=== PATIENT | male | born 1960 | race African-American/Black ===

== ENCOUNTER 2016-11-21 23:53 | Emergency (ER) | payer SELFPAY ==
[~2016-11-21] VITALS: Ht 162.6 cm; Wt 63.5 kg
[2016-11-22 00:07] VITALS: BP 128/81
--- NOTE | 2016-11-22 01:20 | PHYS DOC ---
Past Medical History Past Medical History: Hypertension Additional Past Medical Histor: patient is poor historian Past Surgical History: No Surgical History Alcohol Use: Heavy Drug Use: None Adult General Chief Complaint Chief Complaint: LOWER EXT PAIN HPI HPI Patient is a 56 year old male who presents with complaint of bilateral foot pain. Patient states that he has been having burning pain over the past several months. The patient is falling asleep during the patient interview. The patient states that he drank "a couple cans of alcohol." When asked how big the cans work, the patient held his hands far apart from each other indicating that they were very large. On further questioning, the patient is a daily drinker and drinks very heavily. Patient started having worsening burning to his feet which is why he came to the emergency department. The patient has been able to walk but states that he has been having pain which makes it difficult to walk. The patient denies any other complaints at this time. The patient does not wish to discuss his alcohol use any further during the interview. The patient states he just wants to know why his feet are burning. Review of Systems Review of Systems Constitutional: Denies fever or chills [] Eyes: Denies change in visual acuity, redness, or eye pain [] HENT: Denies nasal congestion or sore throat [] Respiratory: Denies cough or shortness of breath [] Cardiovascular: Denies chest pain or edema[] GI: Denies abdominal pain, nausea, vomiting, bloody stools or diarrhea [] : Denies dysuria or hematuria [] Musculoskeletal: Denies back pain or joint pain [] Integument: Denies rash or skin lesions [] Neurologic: Burning pain to feet[] Allergies Allergies Allergies Coded Allergies Type Severity Reaction Last Updated Verified No Known Drug Allergies 11/22/16 No Physical Exam Physical Exam Constitutional: Sleepy, arouses to voice, no acute distress. [] HENT: Normocephalic, atraumatic, bilateral external ears normal, oropharynx moist, no oral exudates, nose normal. [] Eyes: PERRLA, EOMI, conjunctiva normal, no discharge. [] Neck: Normal range of motion, no tenderness, supple, no stridor. [] Cardiovascular:Heart rate regular rhythm, no murmur [] Lungs & Thorax: Bilateral breath sounds clear to auscultation [] Abdomen: Bowel sounds normal, soft, no tenderness, no masses, no pulsatile masses. [] Skin: Warm, dry, no erythema, no rash. [] Back: No tenderness, no CVA tenderness. [] Extremities: No tenderness, no cyanosis, no clubbing, ROM intact, no edema. [] Neurologic: Alert and oriented X 3, normal motor function, decreased sensation to all toes and bottoms of feet in a stocking pattern. [] Current Patient Data Vital Signs Vital Signs Date Time Temp Pulse Resp B/P (MAP) Pulse Ox O2 Delivery O2 Flow Rate FiO2 11/22/16 00:07 98.0 75 16 97 Room Air 98.0 Lab Values Laboratory Tests Test 11/22/16 01:07 Glucose (Fingerstick) 114 mg/dL (70-99) H EKG EKG Not performed[] Radiology/Procedures Radiology/Procedures Not performed[] Course & Med Decision Making Course & Med Decision Making Pertinent Labs and Imaging studies reviewed. (See chart for details) Patient's medical evaluation shows no evidence of an acute life-threatening condition. Patient's blood sugar was checked in the emergency department and found to be 114. After speaking with the patient I explained to him that his daily drinking is likely the source of the patient's burning pain which appears consistent with neuropathy. This is likely due to B12 and folic acid deficiency. The patient did not wish to have any further blood testing done in the emergency department. The patient does have a primary doctor and I advised him to follow-up in the next 3-5 days for reevaluation. I also highly recommended that the patient seek counseling for his alcohol use which she does not wish to do at this time. Advised return emergency department for any worsening symptoms. Patient voiced understanding and in agreement with treatment plan. Dragon Disclaimer Dragon Disclaimer This electronic medical record was generated, in whole or in part, using a voice recognition dictation system. Departure Departure Impression: Primary Impression: Neuropathy Additional Impression: Alcoholism Disposition: HOME, SELF-CARE Condition: STABLE Referrals: NO PCP (PCP) Patient Instructions: Chronic Alcoholism, Pain, Neuropathic Additional Instructions: Follow-up with your doctor in 3-5 days for reevaluation. Your symptoms are likely due to daily alcohol use and it is recommended that you seek outpatient counseling and treatment to detox from alcohol. Is also recommended that you take a daily multivitamin to help with her symptoms. Return to the emergency department for any worsening symptoms. Problem Qualifiers NETO DOWD MD Nov 22, 2016 01:20
== END 2016-11-22 01:33 | disposition home or self-care (01) ==
LOC: ER 11-22 00:18
DX: G62.9 Polyneuropathy, unspecified (principal); F10.20 Alcohol dependence, uncomplicated; I10 Essential (primary) hypertension
CPT/HCPCS: 82962; 99283

== ENCOUNTER 2018-02-16 15:11 | Emergency (ER) | payer OTHER ==
[~2018-02-16] VITALS: Ht 162.6 cm; Wt 63.5 kg
[2018-02-16] MEDS ORDERED: IV NORMAL SALINE 1000ML BAG 1,000 ML IV SCH (16:14)
[2018-02-16] MEDS ORDERED: MORPHINE SULFATE 4 MG/ML VIAL. IV/SQ PRN (16:15)
--- NOTE | 2018-02-16 16:23 | PHYS DOC ---
Past Medical History Past Medical History: Hypertension Additional Past Medical Histor: patient is poor historian Past Surgical History: No Surgical History Smoking: Cigarettes Alcohol Use: Heavy Drug Use: None Adult General Chief Complaint Chief Complaint: ABDOMINAL PAIN HPI HPI Patient is a 57-year-old man who presents to the emergency department for evaluation of right upper quadrant abdominal pain and right rib pain. He states he fell about a week ago, injuring his right side. He states that since that time he has been unable to lay on his right side. Palpation of the affected area worsens his pain. He has not had any dizziness or lightheadedness, nausea, vomiting, or gross hematuria. Other than the stated above, there are no alleviating or exacerbating factors to his symptoms. The patient does admit to regular alcohol use, and the faint odor of alcohol is detectable on the patient' s breath. Review of Systems Review of Systems Constitutional: Denies fever or chills [] Eyes: Denies change in visual acuity, redness, or eye pain [] HENT: Denies nasal congestion or sore throat [] Respiratory: Denies cough or shortness of breath [] Cardiovascular: The patient denies any shortness of breath, chest pain, palpitations, or orthopnea [] GI: Denies nausea, vomiting, bloody stools or diarrhea [] : Denies dysuria or hematuria [] Musculoskeletal: Denies back pain or joint pain [] Integument: Denies rash or skin lesions [] Neurologic: Denies headache, focal weakness or sensory changes [] Endocrine: Denies polyuria or polydipsia [] All other systems were reviewed and found to be within normal limits, except as documented in this note. Current Medications Current Medications Current Medications Medications (Trade) Dose Ordered Sig/Bart Start Time Stop Time Status Last Admin Dose Admin Iohexol (Omnipaque 300 Mg/ml) 75 ml 1X ONCE 02/16/18 18:00 02/16/18 18:01 DC 02/16/18 18:00 75 ML Morphine Sulfate (Morphine Sulfate) 4 mg PRN Q15MIN PRN 02/16/18 16:15 02/17/18 16:14 02/16/18 17:13 4 MG Sodium Chloride 1,000 ml @ 1,000 mls/hr Q1H 02/16/18 16:14 02/16/18 17:13 DC 02/16/18 17:13 1,000 MLS/HR Allergies Allergies Allergies Coded Allergies Type Severity Reaction Last Updated Verified No Known Drug Allergies 11/22/16 No Physical Exam Physical Exam PHYSICAL EXAM: CONSTITUTIONAL: Well developed, well nourished HEAD: normocephalic, atraumatic EENT: PERRL, EOMI. Conjunctivae normal color, sclerae non-icteric; moist mucous membranes. NECK: Supple, non-tender; no meningismus.There is full, painless range of motion of the cervical spine, without any focal bony midline tenderness to palpation. LUNGS: Lungs CTA, breathing even and unlabored. Normal air movement. HEART: Regular rate and rhythm, no murmur CHEST: No deformity; there is tenderness to palpation to the right lower and lateral costal margin. ABDOMEN: The abdomen is soft, there is focal right upper quadrant tenderness to palpation with some voluntary guarding, but without rebound tenderness. The right lower, and left side of the abdomen are both relatively non-tender, no masses or bruits. EXTREM: Normal ROM; no deformity, no calf tenderness. Normal pulses palpable in all extremities. There is no pedal edema. SKIN: No rash; no diaphoresis NEURO: Alert; normal speech and cognition; CN's grossly intact; strength grossly intact without focal deficit. BACK: No CVA TTP. There is no bony tenderness to palpation of the thoracic or lumbar spine. Current Patient Data Vital Signs Vital Signs Date Time Temp Pulse Resp B/P (MAP) Pulse Ox O2 Delivery O2 Flow Rate FiO2 02/16/18 17:58 75 18 159/88 (111) 96 Room Air 02/16/18 15:40 98.5 98.5 Lab Values Laboratory Tests Test 02/16/18 17:15 02/16/18 17:50 White Blood Count 5.1 x10^3/uL (4.0-11.0) Red Blood Count 4.95 x10^6/uL (4.30-5.70) Hemoglobin 15.5 g/dL (13.0-17.5) Hematocrit 44.6 % (39.0-53.0) Mean Corpuscular Volume 90 fL (79-100) Mean Corpuscular Hemoglobin 31 pg (25-35) Mean Corpuscular Hemoglobin Concent 35 g/dL (31-37) Red Cell Distribution Width 14.7 % (11.5-14.5) H Platelet Count 327 x10^3/uL (140-400) Neutrophils (%) (Auto) 68 % (31-73) Lymphocytes (%) (Auto) 20 % (24-48) L Monocytes (%) (Auto) 8 % (0-9) Eosinophils (%) (Auto) 3 % (0-3) Basophils (%) (Auto) 1 % (0-3) Neutrophils # (Auto) 3.5 x10^3uL (1.8-7.7) Lymphocytes # (Auto) 1.0 x10^3/uL (1.0-4.8) Monocytes # (Auto) 0.4 x10^3/uL (0.0-1.1) Eosinophils # (Auto) 0.2 x10^3/uL (0.0-0.7) Basophils # (Auto) 0.0 x10^3/uL (0.0-0.2) Sodium Level 137 mmol/L (136-145) Potassium Level 4.0 mmol/L (3.5-5.1) Chloride Level 101 mmol/L (98-107) Carbon Dioxide Level 26 mmol/L (21-32) Anion Gap 10 (6-14) Blood Urea Nitrogen 12 mg/dL (8-26) Creatinine 1.0 mg/dL (0.7-1.3) Estimated GFR (Cockcroft-Gault) 92.5 BUN/Creatinine Ratio 12 (6-20) Glucose Level 114 mg/dL (70-99) H Calcium Level 9.6 mg/dL (8.5-10.1) Total Bilirubin 0.2 mg/dL (0.2-1.0) Aspartate Amino Transferase (AST) 130 U/L (15-37) H Alanine Aminotransferase (ALT) 275 U/L (16-63) H Alkaline Phosphatase 75 U/L (46-116) Total Protein 7.4 g/dL (6.4-8.2) Albumin 3.6 g/dL (3.4-5.0) Albumin/Globulin Ratio 0.9 (1.0-1.7) L Lipase 364 U/L (73-393) Ethyl Alcohol Level < 10 mg/dL (0-10) Urine Collection Type Unknown Urine Color Yellow Urine Clarity Clear Urine pH 5.5 Urine Specific [place] 1.020 Urine Protein Negative mg/dL (NEG-TRACE) Urine Glucose (UA) Negative mg/dL (NEG) Urine Ketones (Stick) Negative mg/dL (NEG) Urine Blood Negative (NEG) Urine Nitrite Negative (NEG) Urine Bilirubin Negative (NEG) Urine Urobilinogen Dipstick 1.0 mg/dL (0.2 mg/dL) Urine Leukocyte Esterase Negative (NEG) Urine RBC 0 /HPF (0-2) Urine WBC 0 /HPF (0-4) Urine Bacteria 0 /HPF (0-FEW) Urine Mucus Mod /LPF Urine Opiates Screen Pos (NEG) Urine Methadone Screen Neg (NEG) Urine Barbiturates Neg (NEG) Urine Phencyclidine Screen Neg (NEG) Urine Amphetamine/Methamphetamine Neg (NEG) Urine Benzodiazepines Screen Neg (NEG) Urine Cocaine Screen Neg (NEG) Urine Cannabinoids Screen Neg (NEG) Urine Ethyl Alcohol Pos (NEG) Laboratory Tests 02/16/18 17:15 Laboratory Tests 02/16/18 17:15 EKG EKG [] Radiology/Procedures Radiology/Procedures [PROCEDURE: RIBS RIGHT AND PA CHEST EXAM: Chest and right ribs, 3 views. HISTORY: Fall. COMPARISON: None. FINDINGS: A frontal view the chest and 3 views of the right ribs are obtained. There is no infiltrate, pleural effusion or pneumothorax. The heart is normal in size. There is a small nodular opacity overlying the left lower lobe, possibly due to a slightly calcified granuloma. There are mildly displaced fractures of the lateral right sixth, seventh and eighth ribs. IMPRESSION: 1. Mildly displaced lateral right sixth, seventh and eighth ribs. 2. No acute pulmonary finding. There is a tiny nodular opacity overlying the left lower lobe which may be a slightly calcified granuloma. In the absence of prior studies to assess for interval change, short-term radiographic follow-up can be performed to exclude a noncalcified nodule in this location. ] PROCEDURE: CT ABD PELV W/ IV CONTRST ONLY CT SCAN OF THE ABDOMEN AND PELVIS WITH IV CONTRAST. History: Right upper quadrant pain post trauma Comparison:None. Procedure: Contiguous axial images of the abdomen and pelvis were performed after the administration of 75 cc of Omni 300 IV contrast and oral contrast. CT Abdomen with contrast: Findings: There is fractures the distal 6/7 and eighth ribs on the right. Beam Lester artifact from a metallic density in the right upper quadrant appears to be from prior coiling. Liver: Mild hypoattenuation anterior to the fissure is likely fatty infiltration Spleen: Unremarkable Pancreas: Unremarkable Adrenal Glands: Unremarkable Kidneys: Unremarkable There is no mass or lymphadenopathy. There is no free air. There is no free fluid. CT Pelvis with Contrast: Findings: The urinary bladder appears normal. There is no free fluid. There is no lymphadenopathy. The appendix is normal. There is fat-containing inguinal canal hernias bilaterally. Impression: Acute traumatic rib fractures on the right. Course & Med Decision Making Course & Med Decision Making Pertinent Labs and Imaging studies reviewed. (See chart for details) [6:30 PM:Patient remains stable. I discussed test results, the need for close follow-up, and return precautions.] I specifically discussed the need for outpatient imaging of the chest for the incidentally noted lung nodule. We discussed the use of pain medication, incentive spirometry, and return precautions. The patient has no prior LFTs at this facility, given his history of heavy alcohol abuse this could be related to alcoholism, but I also stressed importance of establishment of care with a PCP for further outpatient evaluation of following of this abnormality and this was discussed with the patient and his . Dragon Disclaimer Dragon Disclaimer This electronic medical record was generated, in whole or in part, using a voice recognition dictation system. Departure Departure Impression: Primary Impression: Rib fractures Additional Impression: Alcohol abuse Disposition: 01 HOME, SELF-CARE Condition: STABLE Referrals: ADDISON ALEGRIA MD (PCP) Patient Instructions: Alcohol Problems, Incentive Spirometer, Rib Fracture Additional Instructions: There was an abnormality noted on her chest x-ray which will require further outpatient follow up with a two-view chest x-ray. Please call your primary care provider to help arrange a follow-up study. Additionally, your liver function tests were noted to be elevated today. This could be related to alcohol use but this also needs close follow-up with your primary care provider for further monitoring Scripts Hydrocodone/Apap 5-325 (NORCO 5-325 TABLET) 1 Each Tablet 1 TAB PO Q6H PRN for PAIN, #20 TAB Prov: ATUL PRADHAN MD 02/16/18 Problem Qualifiers ATUL PRADHAN MD Feb 16, 2018 16:23
[2018-02-16 17:23] LABS: BASO % 1 % (0-3); EOS # 0.2 x10^3/uL (0.0-0.7); EOS % 3 % (0-3); HEMATOCRIT 44.6 % (39.0-53.0); HEMOGLOBIN 15.5 g/dL (13.0-17.5); LYMPH % 20 % (24-48); MEAN CORPUSCULAR HEMOGLOBIN 31 pg (25-35); MEAN CORPUSCULAR HGB CONC 35 g/dL (31-37); MEAN CORPUSCULAR VOLUME 90 fL (79-100); MONO # 0.4 x10^3/uL (0.0-1.1); MONO % 8 % (0-9); NEUT # 3.5 x10^3uL (1.8-7.7); NEUT % 68 % (31-73); PLATELET COUNT 327 x10^3/uL (140-400); RED BLOOD COUNT 4.95 x10^6/uL (4.30-5.70); RED CELL DISTRIBUTION WIDTH 14.7 % (11.5-14.5); WHITE BLOOD COUNT 5.1 x10^3/uL (4.0-11.0)
--- NOTE | 2018-02-16 17:25 | RAD ---
EXAM: Chest and right ribs, 3 views. HISTORY: Fall. COMPARISON: None. FINDINGS: A frontal view the chest and 3 views of the right ribs are obtained. There is no infiltrate, pleural effusion or pneumothorax. The heart is normal in size. There is a small nodular opacity overlying the left lower lobe, possibly due to a slightly calcified granuloma. There are mildly displaced fractures of the lateral right sixth, seventh and eighth ribs. IMPRESSION: 1. Mildly displaced lateral right sixth, seventh and eighth ribs. 2. No acute pulmonary finding. There is a tiny nodular opacity overlying the left lower lobe which may be a slightly calcified granuloma. In the absence of prior studies to assess for interval change, short-term radiographic follow-up can be performed to exclude a noncalcified nodule in this location. Electronically signed by: Kay Elizalde MD (02/16/2018 5:22 PM) [id number]
[2018-02-16 17:37] LABS: CALCIUM 9.6 mg/dL (8.5-10.1); GFR 92.5
[2018-02-16 17:43] LABS: ALBUMIN 3.6 g/dL (3.4-5.0); ALBUMIN/GLOBULIN RATIO 0.9 (1.0-1.7); TOTAL BILIRUBIN 0.2 mg/dL (0.2-1.0); TOTAL PROTEIN 7.4 g/dL (6.4-8.2)
[2018-02-16 17:56] LABS: BILIRUBIN,URINE NEGATIVE (NEG); CLARITY,URINE CLEAR; COLOR,URINE YELLOW; NITRITE,URINE NEGATIVE (NEG); PH,URINE 5.5; PROTEIN,URINE NEGATIVE (NEG-TRACE)
[2018-02-16] MEDS ORDERED: IOHEXOL 300 MG/ML 100ML VIAL. IV ONE (18:00)
[2018-02-16 18:02] LABS: BARBITURATES NEG (NEG); BENZODIAZEPINES NEG (NEG); CANNABINOIDS NEG (NEG); COCAINE NEG (NEG); METHADONE NEG (NEG); OPIATES POS (NEG); PHENCYCLIDINE NEG (NEG)
[2018-02-16 18:03] LABS: AMPHETAMINE/METHAMPHETAMINE NEG (NEG); BACTERIA,URINE 0 /HPF (0-FEW); RBC,URINE 0 /HPF (0-2); WBC,URINE 0 /HPF (0-4)
--- NOTE | 2018-02-16 18:22 | RAD ---
CT SCAN OF THE ABDOMEN AND PELVIS WITH IV CONTRAST. History: Right upper quadrant pain post trauma Comparison:None. Procedure: Contiguous axial images of the abdomen and pelvis were performed after the administration of 75 cc of Omni 300 IV contrast and oral contrast. CT Abdomen with contrast: Findings: There is fractures the distal 6/7 and eighth ribs on the right. Beam Lester artifact from a metallic density in the right upper quadrant appears to be from prior coiling. Liver: Mild hypoattenuation anterior to the fissure is likely fatty infiltration Spleen: Unremarkable Pancreas: Unremarkable Adrenal Glands: Unremarkable Kidneys: Unremarkable There is no mass or lymphadenopathy. There is no free air. There is no free fluid. CT Pelvis with Contrast: Findings: The urinary bladder appears normal. There is no free fluid. There is no lymphadenopathy. The appendix is normal. There is fat-containing inguinal canal hernias bilaterally. Impression: Acute traumatic rib fractures on the right. PQRS Compliance Statement: One or more of the following individualized dose reduction techniques were utilized for this examination: 1. Automated exposure control 2. Adjustment of the mA and/or kV according to patient size 3. Use of iterative reconstruction technique Electronically signed by: Arjun Chen III, MD (02/16/2018 6:19 PM) [facility]
[2018-02-16 18:30] VITALS: BP 182/98
[2018-02-16] MEDS ORDERED: HYDR-3164 PO (18:33)
== END 2018-02-16 18:45 | disposition home or self-care (01) ==
LOC: ER 15:11
DX: S22.41XA Multiple fractures of ribs, right side, initial encounter for closed fracture (principal); R10.11 Right upper quadrant pain; I10 Essential (primary) hypertension; F17.210 Nicotine dependence, cigarettes, uncomplicated; F10.20 Alcohol dependence, uncomplicated; Y90.0 Blood alcohol level of less than 20 mg/100 ml; W18.39XA Other fall on same level, initial encounter; Y93.89 Activity, other specified; Y92.89 Other specified places as the place of occurrence of the external cause; Y99.8 Other external cause status
CPT/HCPCS: 36415; 71101; 74177; 80053; 80307; 81001; 83690; 85025; 96374; 99284; G0480; J2270; J7030; Q9967